=== PATIENT | female | born 1995 | race Caucasian/White ===

== ENCOUNTER 2017-05-18 01:50 | Outpatient (CLI) | payer BC, OTHER ==
[2017-05-18 02:04] VITALS: BP 126/79; PULSE 102; RESP 16; TEMP 96.2
--- NOTE | 2017-05-26 07:32 | P.MSEPDOC ---
Presenting Problems - Arrival Data Date of Arrival on Unit: 05/18/17 Time of Arrival on Unit: 01:54 Mode of Transport: Wheelchair - Complaint OB-Reason for Admission/Chief Complaint: Possible Onset of Labor, Rule Out SROM Comment: Possible SROM and contractions that are 6-8 minutes apart Medical History - Information : 2 Para: 1 Term: 1 : 0 Abortions: Spontaneous or Elective: 0 Number of Living Children: 1 - Gestational Age Expected Date of Delivery: 05/25/17 Gestational Age by RAFAEL (wks/days): 40 Weeks and 1 Days - History Complications: Smoker Review of Systems - Review of Systems Constitutional: No problems Breast: No problems ENT: No problems Cardiovascular: No problems Respiratory: No problems Gastrointestinal: No problems Genitourinary: No problems Musculoskeletal: No problems Neurological: No problems Skin: No problems Vital Signs - Temperature Temperature: 96.2 F Temperature Source: Temporal Artery Scan - Pulse Pulse Oximetery Pulse Rate: 102 Pulse Assessment Method: Automatic Cuff - Respirations Respiratory Rate: 16 Oxygen Delivery Method: Room Air - Blood Pressure Sitting Blood Pressure: 126/79 Blood Pressure Mean: 94 Blood Pressure Source: Automatic Cuff Medical Screen Scoring (Pre) - Cervical Exam Dilation: 1-3 cm = 1 Membranes: Intact - Uterine Contractions Frequency: > 5 minutes apart = 1 Duration: > 40 seconds = 2 Intensity: N/A - Maternal Vital Signs Maternal Temperature: N/A Maternal Blood Pressure: N/A Signs of Preeclampsia: N/A Maternal Respirations: N/A - Maternal Trauma Maternal Trauma: N/A - Assessment Baseline FHR: 130 Heart Rate - NICHD Category: Category I (Normal) = 0 NST: Reactive Position: N/A Station: N/A - Total Score Total Score (Pre): 4 - Level of Risk Level of Risk: Low (0-5) Disposition - Disposition Discharge Date: 05/18/17 Discharge Time: 03:21 I agree with the RN Medical Screening Exam: Yes Risk & Benefit of care provided described in d/c instruction: Yes Diagnosis: FALSE LABOR AT OR AFTER 37 COMPLETED WEEKS OF GESTATION
== END 2017-05-18 03:21 | disposition home or self-care (01) ==
LOC: FBPOP 01:50
PROVIDERS: ATTEND Obstetrics & Gynecology
DX: O47.1 False labor at or after 37 completed weeks of gestation (principal); Z3A.40 40 weeks gestation of pregnancy
CPT/HCPCS: 59025; 84112; 99213

== ENCOUNTER 2017-05-27 20:20 | Inpatient (IN) | payer BC, OTHER ==
[2017-05-27] MEDS ORDERED: LIDOCAINE 1% (PF) 10 MG/ML (30 ML SDV) SQ PRN (21:21)
[2017-05-27] MEDS ORDERED: CARBOPROST TROMETHAMINE 250 MCG/ML 1 ML AMP IM PRN (21:21)
[2017-05-27] MEDS ORDERED: TERBUTALINE 1 MG/ML VIAL SQ PRN (21:21)
[2017-05-27] MEDS ORDERED: METHYLERGONOVINE 0.2 MG/ML 1 ML AMP IM PRN (21:21)
[2017-05-27] MEDS ORDERED: OXYTOCIN 10 UNIT/ML 1 ML VIAL IM PRN (21:21)
[2017-05-27] MEDS: LACTATED RINGERS 1,000 ML IV SCH ×2 (21:43→23:08)
[2017-05-27] MEDS ORDERED: OXYTOCIN 20 UNITS/1000 ML NS 1,000 ML IV SCH (22:00)
--- NOTE | 2017-05-27 22:10 | P.HPOB ---
History of Present Illness H&P Date: 05/27/17 Chief Complaint: Gush of fluid This patient is a pleasant 22-year-old 2 para 1 female estimated date of confinement 05/25/2017 estimated gestational age 40-2/7 weeks gestation who is admitted to labor and delivery with complaints of gush of fluid at about 7: 00 this evening. Patient's care is per Dr. Vaca and appears be complicated by a LEEP excision of the cervix in the interval between her last . Patient has been noted by Dr. Vaca to have a band of tissue. Plan at this time was to proceed with labor and patient understood she could have to have a if this band of tissue did not reduce. care appears to be otherwise uncomplicated. Review of Systems Constitutional: Denies chills, Denies fever Ears, nose, mouth and throat: Denies headache, Denies sore throat Cardiovascular: Denies chest pain, Denies shortness of breath Respiratory: Denies cough Gastrointestinal: Reports heartburn, Denies abdominal pain, Denies diarrhea, Denies nausea, Denies vomiting Genitourinary: Reports Menstruation: Reports amenorrhea Musculoskeletal: Denies myalgias Integumentary: Denies pruritus, Denies rash Neurological: Denies numbness, Denies weakness Past Medical History Past Medical History: No Reported History History of Any Multi-Drug Resistant Organisms: None Reported Additional Past Surgical History / Comment(s): LEEP excision of the cervix Past Anesthesia/Blood Transfusion Reactions: Family History of Problems w/ Anesthesia, Motion Sickness Additional Past Anesthesia/Blood Transfusion Reaction / Comment(s): MOTHER HAD DIFFICULTY WAKING AFTER SURGERY. PT HAS NEVER RECEIVED ANESTHESIA Past Psychological History: Anxiety, Depression Smoking Status: Current every day smoker Past Alcohol Use History: None Reported Past Drug Use History: None Reported - Past Family History Sister(s) Family Medical History: Cancer Additional Family Medical History / Comment(s): SISTER OF BRAIN CANCER AT 16 YRS OLD. Medications and Allergies Home Medications Medication Instructions Recorded Confirmed Type No Known Home Medications [No 05/18/17 05/27/17 History Known Home Medications] Allergies Allergy/AdvReac Type Severity Reaction Status Date / Time No Known Allergies Allergy Verified 05/27/17 20:36 Exam - Vital Signs Vital signs: Intake and Output 07/13/17 07/13/17 07/13/17 06:59 14:59 22:59 Other: Weight 82.554 kg Patient Weight 05/28/17 06:59 Weight 82.554 kg - OBG Physical Exam Abdomen: bowel sounds normal, no diffuse tenderness, no bruit present, no guarding noted, no hepatomegaly, no splenomegaly, no mass Vulva: both: normal Vagina: normal moisture, no discharge Cervix: Cervix is a tight band of tissue consistent with previous LEEP. Cervix is 1 cm I'm able to dilated to 2-3 with some pressure is completely thinned out but again it has scarring. Cervix: no lesion, no discharge Uterus: enlarged (Fundal height is consistent with a term .) Results Blood type is O+, hepatitis B is negative, Glucola was normal. RPR is nonreactive. Assessment and Plan (1) Spontaneous rupture of amniotic membranes Narrative/Plan: This is a pleasant 22-year-old 2 para 1 female 40-2/7 weeks gestation with spontaneous rupture membranes and few contractions. Patient has cervical stenosis secondary to previous LEEP surgery. Plan at this time is to augment labor, that the cervical band dissipates either with labor or digitally. If she continues to have cervical stenosis secondary to the scarring she understands she may require section for delivery. Status: Acute (2) Stenotic cervical os Status: Acute
[2017-05-27 22:21] LABS: Basophils % (A) 0 %; CH 29.9; CHCM 34.2; Eosinophils # (A) 0.1 k/uL (0-0.7); Eosinophils % (A) 1 %; HCT 34.2 % (34.0-46.0); HDW 2.67; HGB 11.9 gm/dL (11.4-16.0); Luc # (Auto) 0.12; Luc % (Auto) 1; Lymphocytes # (A) 1.9 k/uL (1.0-4.8); Lymphocytes % (A) 17 %; MCH 30.7 pg (25.0-35.0); MCHC 34.9 g/dL (31.0-37.0); MCV 87.9 fL (80.0-100.0); Mean Platelet Volume 8.4; Monocytes # (A) 0.4 k/uL (0-1.0); Monocytes % (A) 3 %; Neutrophils # (A) 8.7 k/uL (1.3-7.7); Neutrophils % (A) 77 %; RBC 3.89 m/uL (3.80-5.40); RDW 14.4 % (11.5-15.5); WBC 11.3 k/uL (3.8-10.6)
[2017-05-27] MEDS ORDERED: SODIUM CHLORIDE 0.9% 100 ML BAG ONE (22:43)
[2017-05-27] MEDS ORDERED: BUPIVACAINE (PF) 0.25% 30 ML VIAL ONE (22:43)
[2017-05-27] MEDS ORDERED: fentaNYL (PF) 50 MCG/ML 5 ML AMP ONE (22:43)
[2017-05-28 00:51] VITALS: BMI 28.5
[2017-05-28] MEDS: LACTATED RINGERS 1,000 ML IV SCH (03:07)
[2017-05-28] MEDS ORDERED: BENZOCAINE/MENTHOL SPRAY 1 GM/SPRAY AEROSOL TOPICAL PRN (03:48)
[2017-05-28] MEDS ORDERED: HYDROCORTISONE 2.5% RECTAL CREAM 30 GM TUBE RECTAL PRN (03:48)
[2017-05-28] MEDS ORDERED: ACETAMINOPHEN TAB 325 MG TAB PO PRN (03:48)
[2017-05-28] MEDS ORDERED: LANOLIN CREAM 5 GM TUBE TOPICAL PRN (03:48)
[2017-05-28] MEDS ORDERED: diphenhydrAMINE 50 MG/ML 1 ML VIAL IVP PRN (03:48)
[2017-05-28] MEDS ORDERED: SIMETHICONE 80 MG CHEWABLE PO PRN (03:48)
[2017-05-28] MEDS ORDERED: WITCH HAZEL 1 EACH MED..PAD TOPICAL PRN (03:48)
[2017-05-28] MEDS ORDERED: BISACODYL 10 MG SUPP RECTAL PRN (03:48)
[2017-05-28] MEDS ORDERED: ZOLPIDEM 5 MG TAB PO PRN (03:48)
[2017-05-28] MEDS ORDERED: IBUPROFEN 600 MG TAB PO PRN (03:48)
[2017-05-28] MEDS ORDERED: Acetaminophen-Codeine 300-30mg TAB PO PRN ×2 (03:48)
[2017-05-28] MEDS ORDERED: diphenhydrAMINE 25 MG CAP PO PRN (03:48)
--- NOTE | 2017-05-28 03:53 | P.PROBDLV ---
Vaginal Delivery Note - . Vaginal Delivery Note: Normal vaginal delivery viable female Apgars 8 and 9 at 0336 hours. Please see dictated H&P for intimate details of this patient's admission. In brief summary this is a pleasant 22-year-old 2 para 1 female 40-3/7 weeks gestation admitted last evening with spontaneous rupture membranes at 7 PM. Patient was 1 cm dilated has a tight cervical band consistent with cervical stenosis. Patient was encouraged to get an epidural so that this band could be broken out. She did receive the epidural and at this time I did manually lyse this band and she subsequently went to 4 cm dilated. Patient is given Pitocin augmentation of labor. This time she does progress and gets to complete. Patient pushes the head to the perineum. Posterior perineum is supported and we have controlled delivery of the 's head over the intact perineum. Mouth and nares are bulb suctioned. There is no evidence of a nuchal cord. With gentle downward traction we then have deliver the anterior and posterior shoulder and rest this infant's body. This is a vigorous viable female and Apgars are 8 and 9 delivery time was 0336 hours. After delivery of the the umbilical cord is doubly clamped and cut. Note the umbilical cord is very short. The placenta is spontaneously delivered intact. Estimated blood loss is 100 mL. There are no lacerations and no repair. Infant and mother are stable in delivery room. All counts are correct 3. There are no complications.
[2017-05-28] MEDS ORDERED: OXYTOCIN 20 UNITS/1000 ML NS 1,000 ML IV SCH (04:00)
[2017-05-28] MEDS ORDERED: BUPIVACAINE (PF) 0.25% 25 ML, fentaNYL (PF) 200 MCG in SODIUM CHLORIDE 0.9% 71 ML EPIDURAL ONE (07:12)
[2017-05-28] MEDS: SENNOSIDES-DOCUSATE SODIUM 1 EACH TAB PO SCH ×2 (09:24→20:08)
[2017-05-29 00:29] VITALS: RESP 16
[2017-05-29 08:16] VITALS: BP 123/73; PULSE 83; TEMP 97.7
--- NOTE | 2017-05-29 11:24 | P.DS ---
Providers Date of admission: 05/27/17 20:49 Expected date of discharge: 05/29/17 Attending physician: Peter Morales Primary care physician: Peter Morales Procedures: Spontaneous vaginal delivery of a viable female on 05/28/2017 Patient Condition at Discharge: Stable Plan - Discharge Summary New Discharge Prescriptions: No Action No Known Home Medications [No Known Home Medications] Discharge Medication List No Known Home Medications [No Known Home Medications] 05/18/17 [History] Follow up Appointment(s)/Referral(s): Peter Morales DO [Primary Care Provider] - 6 Weeks Activity/Diet/Wound Care/Special Instructions: Instructions 1. Do not begin any exercise program for 3 weeks. 2. Do not resume sexual relations for 3 weeks or longer if uncomfortable. 3. You may take tub baths or showers at any time. 4. You may use tampons if desired after 3 weeks. 5. Keep the area of episiotomy (stitches) clean and dry. 6. If you are not nursing, wear a good fitting, supportive bra during the day and limit fluid intake for at least 1 week to prevent breast engorgement. 7. Call the office, [phone], within the next week to make appointment for your 6 week checkup if it has not already been made. 8. Report any of the following occurrences to the doctor promptly: a. Heavy, excessive bleeding b. Chills, fever c. Burning or frequency of urination d. Pain or redness and breasts if nursing e. Increasing pain or swelling in episiotomy (stitches). In addition to the above instructions, the following additional should be followed: 1. No heavy lifting or straining (exercising) until after 6 week checkup. 2. Keep abdominal incision clean and dry: You may wear a dressing if more comfortable. 3. Make office appointment for 10 days after going home or as instructed by her doctor. Discharge Disposition: HOME SELF-CARE
[2017-05-29] MEDS: SENNOSIDES-DOCUSATE SODIUM 1 EACH TAB PO SCH (12:48)
== END 2017-05-29 12:49 | disposition home or self-care (01) | DRG 775 ==
LOC: FBPOP 20:20 → 4FBP 20:49
PROVIDERS: ADMIT Obstetrics & Gynecology; ATTEND Obstetrics & Gynecology
PROC: 00HU33Z Insertion of Infusion Device into Spinal Canal, Percutaneous Approach (ICD-10-PCS; 2017-05-27)
PROC: 3E0R3CZ (ICD-10-PCS; 2017-05-27)
PROC: 10E0XZZ Delivery of Products of Conception, External Approach (ICD-10-PCS; principal; 2017-05-28)
PROC: 0U7C7ZZ Dilation of Cervix, Via Natural or Artificial Opening (ICD-10-PCS; 2017-05-28)
DX: O34.43 Maternal care for other abnormalities of cervix, third trimester (principal); N88.2 Stricture and stenosis of cervix uteri; O99.334 Smoking (tobacco) complicating childbirth; F17.200 Nicotine dependence, unspecified, uncomplicated; Z3A.40 40 weeks gestation of pregnancy; Z37.0 Single live birth; Z86.59 Personal history of other mental and behavioral disorders
CPT/HCPCS: 84112; 85025; 88307; 99213